=== PATIENT | female | born 1995 | race Hispanic/Latino ===

== ENCOUNTER 2022-06-29 07:54 | Emergency (ER) | payer SELFPAY ==
[~2022-06-29] VITALS: Ht 167.6 cm; Wt 81.6 kg
[2022-06-29 10:03] VITALS: BP 117/78
== END 2022-06-29 10:08 | disposition home or self-care (01) | DRG 563 ==
LOC: ED 07:54
DX: S93.491A Sprain of other ligament of right ankle, initial encounter (principal); W11.XXXA Fall on and from ladder, initial encounter; Y93.E9 Activity, other interior property and clothing maintenance; Y92.009 Unspecified place in unspecified non-institutional (private) residence as the place of occurrence of the external cause